=== PATIENT | male | born 1960 | race Caucasian/White ===

== ENCOUNTER 2020-08-15 21:09 | Emergency (ER) | payer OTHER ==
[2020-08-15 21:39] VITALS: BP 149/78; PULSE 76
--- NOTE | 2020-08-15 22:19 | EDM.PDOC ---
ED HPI GENERAL MEDICAL PROBLEM - General Chief Complaint: Lower Extremity Injury/Pain Stated Complaint: LEFT KNEE PAIN - POST MENISCUS SURGERY 08/15 Time Seen by Provider: 08/15/20 22:12 Source of Information: Reports: Patient, Family, RN Notes Reviewed History Limitations: Reports: No Limitations - History of Present Illness INITIAL COMMENTS - FREE TEXT/NARRATIVE: 60-year-old gentleman presents emergency department today following a meniscus arthroscopy of his left knee had this done yesterday but now he has developed a hard lump and pain in his thigh area on the left side is concerned about a blood clot no difficulty breathing no fevers Left Knee Pain Score (Numeric/FACES): 6 - Related Data Allergies Allergy/AdvReac Type Severity Reaction Status Date / Time No Known Allergies Allergy Verified 01/30/16 10:48 Home Meds: Home Meds Sildenafil Citrate 25 mg PO ASDIRECTED PRN 01/28/16 [History] atorvaSTATin [Lipitor] 10 mg PO BEDTIME 01/28/16 [History] Past Medical History HEENT History: Reports: Impaired Vision Cardiovascular History: Reports: High Cholesterol Gastrointestinal History: Reports: Colon Polyp Oncologic (Cancer) History: Reports: Malignant Melanoma Dermatologic History: Reports: Melanoma - Infectious Disease History Infectious Disease History: Reports: Chicken Pox - Past Surgical History Cardiovascular Surgical History: Reports: None GI Surgical History: Reports: Colonoscopy, Hernia, Inguinal Musculoskeletal Surgical History: Reports: Other (See Below) Other Musculoskeletal Surgeries/Procedures:: 08/14/2020 left miniscus repair Dermatological Surgical History: Reports: Skin Biopsy Social & Family History - Tobacco Use Tobacco Use Status *Q: Never Tobacco User - Caffeine Use Caffeine Use: Reports: Tea - Recreational Drug Use Recreational Drug Use: No Review of Systems - Review of Systems Review Of Systems: See Below Constitutional: Reports: No Symptoms Respiratory: Reports: No Symptoms Cardiovascular: Reports: No Symptoms Musculoskeletal: Reports: Leg Pain, Muscle Pain ED EXAM, GENERAL - Physical Exam Exam: See Below Free Text/Narrative:: Examination of the left thigh I do appreciate a tender area however I do not feel a cord consistent with a thrombophlebitis pedal pulses +2 Exam Limited By: No Limitations General Appearance: Alert, WD/WN, No Apparent Distress Respiratory/Chest: No Respiratory Distress Course - Vital Signs Last Recorded V/S: Last Vital Signs Temp 97.9 F 08/15/20 21:38 Pulse 76 08/15/20 21:38 Resp 18 08/15/20 21:38 BP 149/78 H 08/15/20 21:38 Pulse Ox 95 08/15/20 21:38 - Orders/Labs/Meds Orders: Active Orders 24 hr Category Date Time Status VL Duplex Lwr Ext Veins Ltd Lt [US] Stat Exams 08/15/20 22:16 Ordered Departure - Departure Time of Disposition: 23:26 Disposition: Home, Self-Care 01 Condition: Fair Clinical Impression: Post-op pain - Discharge Information Instructions: Pain Without a Known Cause Referrals: Мария Hernandez MD [Primary Care Provider] - Forms: ED Department Discharge Additional Instructions: Continue with your pain control medications, please followup with your primary care provider in 3-5 days if not better, please call return to the emergency department with worsening of symptoms. Sepsis Event Note (ED) - Evaluation Sepsis Screening Result: No Definite Risk - Focused Exam Vital Signs: Vital Signs Temp Pulse Resp BP Pulse Ox 08/15/20 21:38 97.9 F 76 18 149/78 H 95 - My Orders Last 24 Hours: My Active Orders 08/15/20 22:16 VL Duplex Lwr Ext Veins Ltd Lt [US] Stat - Assessment/Plan Last 24 Hours: My Active Orders 08/15/20 22:16 VL Duplex Lwr Ext Veins Ltd Lt [US] Stat Plan: Assessment Acuity = acute Site and laterality = postoperative pain Etiology = unknown Manifestations = none Location of injury = Home Lab values = ultrasound negative for any DVT Plan Reassurance keep follow-up appointment with orthopedic surgery This note was dictated using [employer] voice recognition software please call with any questions on syntax or grammar.
--- NOTE | 2020-08-16 09:39 | US ---
VL Duplex Lwr Ext Veins Ltd Lt INDICATION: left leg pain, post op day 1 FINDINGS: Ultrasound examination of the lower extremity using Doppler and compressive technique demonstrates that the common femoral, femoral, and popliteal veins are patent, and negative for thrombus. The calf veins were segmentally visualized and are negative where seen. IMPRESSION: Negative for deep venous thrombosis.
== END 2020-08-15 23:41 | disposition home or self-care (01) ==
LOC: JP.ED 21:09
DX: G89.18 Other acute postprocedural pain (principal); E78.00 Pure hypercholesterolemia, unspecified; Z79.899 Other long term (current) drug therapy
CPT/HCPCS: 93971-26-LT; 93971-LT; 99283-25

== ENCOUNTER 2021-05-16 08:31 | Day surgery (SDC) | payer OTHER ==
[2021-05-16] MEDS ORDERED: Sodium Chloride 0.9% 1,000 ML IV SCH (09:00)
[2021-05-16] MEDS ORDERED: Midazolam 1 MG/ML 2 ML SDV ONE (09:24)
[2021-05-16] MEDS ORDERED: fentaNYL 100 MCG/2 ML SDV ONE (09:24)
[2021-05-16] MEDS ORDERED: Propofol 200 MG/20 ML SDV ONE (09:24)
[2021-05-16 10:59] VITALS: BP 131/79; PULSE 63
== END 2021-05-16 11:25 | disposition home or self-care (01) ==
LOC: JP.SDS 08:31
PROVIDERS: ATTEND Surgery
DX: Z12.11 Encounter for screening for malignant neoplasm of colon (principal); D12.3 Benign neoplasm of transverse colon; N18.9 Chronic kidney disease, unspecified; Z86.010 Personal history of colon polyps
CPT/HCPCS: 88305; J2250; J2704; J3010; J7030

== ENCOUNTER 2024-05-26 07:51 | Day surgery (SDC) | payer OTHER ==
[~2024-05-26 07:51] MED LIST: Midazolam 1 MG/ML 2 ML SDV ONE; Propofol 200 MG/20 ML SDV ONE; fentaNYL 100 MCG/2 ML SDV ONE
[2024-05-26] MEDS: Lactated Ringers 1,000 ML IV SCH (08:34)
[2024-05-26 10:21] VITALS: BP 132/81; PULSE 60
== END 2024-05-26 10:30 | disposition home or self-care (01) ==
LOC: JP.SDS 07:51
PROVIDERS: ATTEND Surgery
DX: Z12.11 Encounter for screening for malignant neoplasm of colon (principal); D12.2 Benign neoplasm of ascending colon; N18.9 Chronic kidney disease, unspecified
CPT/HCPCS: 00811-QZ; 88305; J2250; J2704; J3010; J7120